=== PATIENT | male | born 2005 | race Caucasian/White ===

== ENCOUNTER 2025-02-10 23:27 | Emergency (ER) | payer BC, SELFPAY ==
[2025-02-10 23:29] VITALS: BMI 18.3
[2025-02-10 23:54] VITALS: BP 121/84; PULSE 103; RESP 18; TEMP 37.9; O2SAT 93
--- NOTE | 2025-02-11 00:01 | XR_ITS ---
Examination: PA lateral chest 2 views TECHNIQUE: Upright PA and lateral chest 2 views Standing time: February 11, 2025 0014 hours Comparison October 29, 2022 INDICATIONS: Shortness of breath coughing today. FINDINGS: Normal heart size Lungs are clear The osseous structures are intact IMPRESSION: No active disease
--- NOTE | 2025-02-11 00:02 | PD.EDSOB ---
ED SOB =RME/HPI General Chief Complaint: Shortness of Breath/Dyspnea Stated Complaint: DYSPNEA FEVER COUGH BODY ACHES Time Seen by Provider: 02/10/25 23:49 Source: patient, family, RN notes reviewed and old records reviewed Arrival date/time: 02/10/25 23:27 Mode of arrival: ambulatory Limitations: no limitations RME / HPI RME / HPI Narrative: 19yom presents to ED for fever, congestion, cough that initiated this morning. No known sick contacts. Patient reports mild shortness of breath and body aches. Denies history of asthma. No sore throat, chest pain, nausea/vomiting or dizziness reported. No medications or treatments since onset. Related Data Previous Rx's ?Medication ?Instructions ?Recorded albuterol sulfate 90 mcg/actuation 2 puff inhalation Q4H PRN 02/11/25 aerosol inhaler shortness of breath or wheezing #18 grams benzonatate 200 mg capsule 200 mg PO TID PRN cough #20 caps 02/11/25 dextromethorphan-guaifenesin ER 60 1 tab PO BID PRN congestion/cough 02/11/25 mg-1,200 mg tab,extend #20 tabs release,12hr (Mucinex DM) ibuprofen 600 mg tablet 600 mg PO Q6H PRN fever or pain 02/11/25 #30 tabs prednisone 50 mg tablet 50 mg PO QDAY #5 tabs 02/11/25 Allergies Allergy/AdvReac Type Severity Reaction Status Date / Time No Known Allergies Allergy Verified 02/10/25 23:32 Review of Systems Review of Systems Systems Reviewed: All systems reviewed, normal except as documented Constitutional Constitutional: Reports chills, Reports fever(s) and Reports headache(s) ENT Ears, Nose, Mouth, and Throat: Reports headache(s) and Reports nasal congestion Cardiovascular Cardiovascular: Denies chest pain and Reports dyspnea Respiratory Respiratory: Reports cough and Reports dyspnea Gastrointestinal Gastrointestinal: Denies nausea and Denies vomiting Musculoskeletal Musculoskeletal: Reports myalgias Neurologic Neurologic: Reports headache(s) Past Medical History Surgical History OTHER SURGICAL HX: denies pshx Social History SMOKING STATUS: Never smoker SUBSTANCE USE: marijuana ALCOHOL: Never Past Medical History Comments PMH COMMENT: denies pmhx ED Exam General Limitations: Present no limitations General appearance: Present alert and in no apparent distress Head Head exam: Present atraumatic and normocephalic Eye Eye exam: Present normal appearance, PERRL and EOMI ENT ENT exam: Present normal oropharynx, mucous membranes moist, TM's normal bilaterally and other (Mild UAC) Neck Neck exam: Present normal inspection and full ROM Chest Chest inspection: Present normal inspection and symmetric chest wall rise Respiratory Respiratory exam: Present other (Wheezing, coarse breath sounds throughout); Absent respiratory distress Cardiovascular Cardiovascular exam: Present regular rate and normal rhythm Extremities Exam Extremities exam: Present normal inspection and full ROM Neurological Exam Neurological exam: Present alert and oriented X3 Psychiatric Psychiatric exam: Present normal affect and normal mood Skin Skin exam: Present warm, dry, intact and normal color Course Quality Measures none Orders Category Date Time Status Bedside COVID-19 Antigen Test NOW Care 02/11/25 00:01 Completed Bedside Influenza A&B Antigen Test NOW Care 02/11/25 00:01 Completed CXR2 [XR chest 2V] Stat Exams 02/11/25 00:01 Taken Acetaminophen Tab [Tylenol ES Tab] Med 02/11/25 00:01 Discontinued 1,000 mg PO X1 ONE Albuterol/Ipratr Rt Laura [Duoneb Rt Laura] Med 02/11/25 00:01 Discontinued 3 ml INH X1 ONE Dexamethasone Inj [Decadron Inj] Med 02/11/25 00:01 Discontinued 10 mg PO X1 ONE Vital Signs Vital signs: Vital Signs Temperature 100.3 F 02/10/25 23:54 Pulse Rate 103 H 02/10/25 23:54 Respiratory Rate 18 02/10/25 23:54 Blood Pressure 121/84 02/10/25 23:54 Pulse Oximetry (%) 93 L 02/10/25 23:54 Oxygen Delivery Method Room Air 02/10/25 23:54 Shortness of Breath / Dyspnea MDM Narrative MDM Narrative:: 19yom presents to ED for fever, congestion, cough that initiated this morning. No known sick contacts. Patient reports mild shortness of breath and body aches. Denies history of asthma. No sore throat, chest pain, nausea/vomiting or dizziness reported. No medications or treatments since onset. Patient reassessed. Symptoms improved after meds, neb treatment. Patient is nontoxic-appearing, vitals are stable. No evidence of respiratory distress or hypoxia. Suspect viral etiology of symptoms. Encouraged rest, fluids, symptomatic treatment, fever management prn. Stable for discharge, RTED precautions given. Patient data External records reviewed:: [facility] previous records (04/15/22 ED visit for influenza) Clinical information provided by:: patient and parent Social determinants that could affect healthcare access:: other (specify) (poor access to healthcare) Patient has the following chronic illnesses:: none How is presenting disease/condition affected by chronic disease/condition?: no chronic disease Evaluation data The following diagnostics were reviewed and interpreted by me:: lab results and radiology exam(s) Lab and/or radiology exams considered but not ordered:: none Interpretation Summary: CXR: no pneumonia per my read covid negative flu negative Medications / Prescriptions Medications or Prescriptions considered but not ordered:: No antibiotics recommended at this time Medication administrations:: Medication Administration History Discontinued Medications Acetaminophen (Acetaminophen 500 Mg Tablet) 1,000 mg PO X1 ONE Stop: 02/11/25 00:02 Last Admin: 02/11/25 00:23 Dose: 1,000 mg Documented By: FRANKY Albuterol/Ipratropium (Albuterol/Ipratropium (Duoneb) Rt Laura 3 Ml Nebu) 3 ml INH X1 ONE Stop: 02/11/25 00:02 Last Admin: 02/11/25 00:17 Dose: 3 ml Documented By: IVAN Dexamethasone Sodium Phosphate (Dexamethasone Sod Phos Inj 10 Mg/Ml Vial) 10 mg PO X1 ONE Stop: 02/11/25 00:02 Last Admin: 02/11/25 00:22 Dose: 10 mg Documented By: FRANKY above medications administered in ED Consultations Consultation(s) initiated? (list below): No Diagnosis Shortness of Breath Differential Diagnosis: other (URI, covid, flu, bronchitis, viral illness, pneumonia, PTX) Most likely diagnosis given after review of the tests above:: URI with wheezing Admission Indicated Admission indicated?: not indicated Admission Request Was there a request for admission?: No Disposition Plan Disposition Plan: Discharge Discharge Attestation Discharge Attestation: The patient and all family members were given an opportunity to ask questions and understood the discharge instructions. Discharge instructions specifically effects, indications for sooner follow up or return to the emergency department, and the expected course of current diagnosis. Patient condition: Stable Discharge Plan Plan Patient Disposition: HOME (Self Care) Patient condition on transfer: Stable Prescriptions/Referrals Prescriptions/Med Rec: New prednisone 50 mg tablet 50 mg PO QDAY Qty: 5 0RF albuterol sulfate 90 mcg/actuation HFA aerosol inhaler 2 puff inhalation Q4H PRN (Reason: shortness of breath or wheezing) Qty: 18 0RF dextromethorphan-guaifenesin [Mucinex DM] 60-1,200 mg tablet extended release 12 hr 1 tab PO BID PRN (Reason: congestion/cough) Qty: 20 0RF benzonatate 200 mg capsule 200 mg PO TID PRN (Reason: cough) Qty: 20 0RF ibuprofen 600 mg tablet 600 mg PO Q6H PRN (Reason: fever or pain) Qty: 30 0RF Problem List Clinical Impression: URI (upper respiratory infection), Wheezing Patient/Caregiver Discharge Instructions Education Materials: ED URI, Viral W/ Wheezing (Adult) Print Language: Macedonian Stand Alone Forms: Tabitha Award Info., Patient Portal Info Letter PA/HORTICULTURE SUPERVISOR Supervising Physician PA/HORTICULTURE SUPERVISOR Supervising Physician: Leslee
[2025-02-11] MEDS: ALBUTEROL/IPRATROPIUM (Duoneb) RT SOL 3 ML NEBU INH (00:17)
[2025-02-11 00:19] VITALS: PULSE 88; RESP 20; O2SAT 99
[2025-02-11] MEDS: DEXAMETHASONE SOD PHOS INJ 10 MG/ML VIAL PO (00:22)
[2025-02-11] MEDS: ACETAMINOPHEN 500 MG TABLET 1000 MG PO (00:23)
== END 2025-02-11 00:56 | disposition home or self-care (01) ==
PROVIDERS: Emergency Provider Emergency Medicine; PCP Family Medicine
DX: J06.9 Acute upper respiratory infection, unspecified (principal)
CPT/HCPCS: 71046; 87400; 87811; 94640; 99283; A9270; J1100